=== PATIENT | female | born 1960 | race Asian ===

== ENCOUNTER 2016-04-26 12:43 | Outpatient (CLI) | payer OTHER ==
[2016-04-26 16:58] LABS: PLATELET COUNT 302 K/uL (152-353)
[2016-04-26 17:22] LABS: POTASSIUM 4.2 mmol/L (3.6-5.2); SODIUM 137 mmol/L (136-145)
== END 2016-04-26 13:43 | disposition home or self-care (01) ==
LOC: LABW 12:43
PROVIDERS: Internal Medicine
DX: E05.80 Other thyrotoxicosis without thyrotoxic crisis or storm (principal); E78.00 Pure hypercholesterolemia, unspecified
CPT/HCPCS: 36415; 80053; 80061; 82306; 83036; 84443; 85027

== ENCOUNTER 2016-05-31 07:43 | Day surgery (SDC) | payer OTHER | END 2016-05-31 09:30 | disposition home or self-care (01) | LOC: OR 07:43 | PROC: 0DB68ZZ Excision of Stomach, Via Natural or Artificial Opening Endoscopic (ICD-10-PCS; principal; 2016-05-31) | DX: K29.50 Unspecified chronic gastritis without bleeding (principal); K44.9 Diaphragmatic hernia without obstruction or gangrene; K21.9 Gastro-esophageal reflux disease without esophagitis; R10.12 Left upper quadrant pain; R10.13 Epigastric pain | CPT/HCPCS: J2704 ==

== ENCOUNTER 2016-06-02 08:50 | Outpatient (CLI) | payer OTHER | END 2016-06-02 21:37 | disposition home or self-care (01) | LOC: MAMMO 08:50 | DX: Z12.31 Encounter for screening mammogram for malignant neoplasm of breast (principal) | CPT/HCPCS: G0202-TC ==

== ENCOUNTER 2016-06-07 10:14 | Outpatient (CLI) | payer OTHER | END 2016-06-07 19:13 | disposition home or self-care (01) | LOC: MAMMO 10:14 → US 10:30 → MAMMO 19:13 | DX: R92.8 Other abnormal and inconclusive findings on diagnostic imaging of breast (principal) | CPT/HCPCS: G0206-TC ==

== ENCOUNTER 2016-11-15 20:54 | Outpatient (CLI) | payer OTHER ==
[2016-11-15 23:32] LABS: POTASSIUM 3.4 mmol/L (3.6-5.2)
== END 2016-11-15 21:55 | disposition home or self-care (01) ==
LOC: LABW 20:54
PROVIDERS: Internal Medicine
DX: E03.8 Other specified hypothyroidism (principal); I10 Essential (primary) hypertension; E55.9 Vitamin D deficiency, unspecified; R79.89 Other specified abnormal findings of blood chemistry
CPT/HCPCS: 80053; 80061; 82652; 83036; 84443

== ENCOUNTER 2017-03-09 13:56 | Outpatient (CLI) | payer OTHER | END 2017-03-09 22:14 | disposition home or self-care (01) | LOC: RAD 13:56 | DX: M81.0 Age-related osteoporosis without current pathological fracture (principal) ==

== ENCOUNTER 2017-05-04 19:50 | Outpatient (CLI) | payer OTHER | END 2017-05-04 22:01 | disposition home or self-care (01) | LOC: LABW 19:50 | DX: E03.8 Other specified hypothyroidism (principal); E34.8 Other specified endocrine disorders; Z79.890 Hormone replacement therapy | CPT/HCPCS: 36415; 82670; 83001; 84402; 84403; 84436 ==

== ENCOUNTER 2017-06-07 13:25 | Outpatient (CLI) | payer OTHER | END 2017-06-07 19:36 | disposition home or self-care (01) | LOC: MAMMO 13:25 | DX: Z12.31 Encounter for screening mammogram for malignant neoplasm of breast (principal) ==

== ENCOUNTER 2017-11-14 10:15 | Outpatient (CLI) | payer OTHER ==
[2017-11-14 10:34] LABS: PLATELET COUNT 284 K/uL (152-353)
[2017-11-14 10:59] LABS: POTASSIUM 3.9 mmol/L (3.6-5.2)
== END 2017-11-14 19:31 | disposition home or self-care (01) ==
LOC: LABW 10:15
PROVIDERS: Internal Medicine
DX: E78.2 Mixed hyperlipidemia (principal); E03.9 Hypothyroidism, unspecified; E55.9 Vitamin D deficiency, unspecified
CPT/HCPCS: 80053; 80061; 82306; 84443; 85027

== ENCOUNTER 2018-06-11 13:28 | Outpatient (CLI) | payer OTHER | END 2018-06-11 21:08 | disposition home or self-care (01) | LOC: MAMMO 13:28 | DX: Z12.31 Encounter for screening mammogram for malignant neoplasm of breast (principal) ==

== ENCOUNTER 2018-11-05 07:55 | Outpatient (CLI) | payer OTHER ==
[2018-11-05 08:11] LABS: PLATELET COUNT 271 K/uL (152-353)
[2018-11-05 08:33] LABS: POTASSIUM 4.1 mmol/L (3.6-5.2)
== END 2018-11-05 23:59 | disposition home or self-care (01) ==
LOC: LABW 07:55
PROVIDERS: Family Medicine
DX: E03.8 Other specified hypothyroidism (principal); R53.83 Other fatigue; E55.9 Vitamin D deficiency, unspecified; E53.8 Deficiency of other specified B group vitamins; R68.82 Decreased libido; Z79.890 Hormone replacement therapy; E78.2 Mixed hyperlipidemia
CPT/HCPCS: 36415; 80053; 80061; 82306; 82607; 82670; 83001; 84402; 84403; 84436; 84443; 84481; 85027; 86376

== ENCOUNTER 2019-04-18 13:05 | Outpatient (CLI) | payer OTHER | END 2019-04-18 21:21 | disposition home or self-care (01) | LOC: RAD 13:05 | DX: M25.511 Pain in right shoulder (principal) ==

== ENCOUNTER 2019-06-16 11:58 | Outpatient (CLI) | payer OTHER | END 2019-06-16 19:17 | disposition home or self-care (01) | LOC: MAMMO 11:58 | DX: Z12.31 Encounter for screening mammogram for malignant neoplasm of breast (principal) ==

== ENCOUNTER 2019-07-16 13:24 | Outpatient (CLI) | payer OTHER | END 2019-07-16 20:58 | disposition home or self-care (01) | LOC: RAD 13:24 | DX: J40 Bronchitis, not specified as acute or chronic (principal) ==

== ENCOUNTER 2019-09-10 08:29 | Outpatient (CLI) | payer OTHER ==
[2019-09-10 09:56] LABS: PLATELET COUNT 251 K/uL (152-353)
== END 2019-09-10 22:03 | disposition home or self-care (01) ==
LOC: LABW 08:29
PROVIDERS: Nurse Practitioner Family
DX: E03.9 Hypothyroidism, unspecified (principal); R53.83 Other fatigue; E55.9 Vitamin D deficiency, unspecified; E53.8 Deficiency of other specified B group vitamins; R68.82 Decreased libido; Z79.890 Hormone replacement therapy; E78.2 Mixed hyperlipidemia
CPT/HCPCS: 36415; 80053; 80061; 82306; 82607; 82670; 83001; 84402; 84403; 84436; 84443; 84481; 85027; 86376

== ENCOUNTER 2019-10-21 09:50 | Outpatient (CLI) | payer OTHER | END 2019-10-21 20:48 | disposition home or self-care (01) | LOC: MRI 09:50 | DX: M47.896 Other spondylosis, lumbar region (principal) ==

== ENCOUNTER 2019-10-31 08:20 | Outpatient (CLI) | payer OTHER | END 2019-10-31 20:23 | disposition home or self-care (01) | LOC: CT 08:20 | DX: R59.0 Localized enlarged lymph nodes (principal) | CPT/HCPCS: 36415; 82565; 84520; Q9963 ==

== ENCOUNTER 2020-05-20 12:42 | Outpatient (CLI) | payer OTHER ==
[~2020-05-20] VITALS: Ht 157.5 cm; Wt 106.1 kg
== END 2020-05-20 21:46 | disposition home or self-care (01) ==
LOC: DIABINF 12:42
PROVIDERS: ATTEND Internal Medicine Endocrinology, Diabetes & Metabolism
DX: E88.81 Metabolic syndrome and other insulin resistance (principal); K21.9 Gastro-esophageal reflux disease without esophagitis; E78.2 Mixed hyperlipidemia; E03.8 Other specified hypothyroidism; E55.9 Vitamin D deficiency, unspecified; G47.09 Other insomnia; M15.0 Primary generalized (osteo)arthritis; Z68.41 Body mass index [BMI] 40.0-44.9, adult; E66.8 Other obesity; Z71.3 Dietary counseling and surveillance
CPT/HCPCS: 82948; 96365; 96366; 96521; 99204; J1718; J1815

== ENCOUNTER 2020-05-21 12:43 | Outpatient (CLI) | payer OTHER ==
[~2020-05-21] VITALS: Ht 157.5 cm; Wt 106.1 kg
== END 2020-05-21 21:40 | disposition home or self-care (01) ==
LOC: DIABINF 12:43
PROVIDERS: ATTEND Internal Medicine Endocrinology, Diabetes & Metabolism
DX: E88.81 Metabolic syndrome and other insulin resistance (principal); K21.9 Gastro-esophageal reflux disease without esophagitis; E78.2 Mixed hyperlipidemia; E03.8 Other specified hypothyroidism; E55.9 Vitamin D deficiency, unspecified; G47.09 Other insomnia; M15.0 Primary generalized (osteo)arthritis; Z68.41 Body mass index [BMI] 40.0-44.9, adult; E66.8 Other obesity; Z71.3 Dietary counseling and surveillance
CPT/HCPCS: 82948; 96365; 96366; 96521; 99214; J1718; J1815

== ENCOUNTER 2020-05-26 13:02 | Outpatient (CLI) | payer OTHER ==
[~2020-05-26] VITALS: Ht 157.5 cm; Wt 106.1 kg
== END 2020-05-26 22:15 | disposition home or self-care (01) ==
LOC: DIABINF 13:02
PROVIDERS: ATTEND Internal Medicine Endocrinology, Diabetes & Metabolism
DX: E88.81 Metabolic syndrome and other insulin resistance (principal); K21.9 Gastro-esophageal reflux disease without esophagitis; E78.2 Mixed hyperlipidemia; E03.8 Other specified hypothyroidism; E55.9 Vitamin D deficiency, unspecified; G47.09 Other insomnia; M15.0 Primary generalized (osteo)arthritis; Z68.41 Body mass index [BMI] 40.0-44.9, adult; Z71.3 Dietary counseling and surveillance
CPT/HCPCS: 82948; 96365; 96366; 96521; 99214; J1718; J1815

== ENCOUNTER 2020-05-27 12:47 | Outpatient (CLI) | payer OTHER ==
[~2020-05-27] VITALS: Ht 157.5 cm; Wt 106.1 kg
== END 2020-05-27 22:13 | disposition home or self-care (01) ==
LOC: DIABINF 12:47
PROVIDERS: ATTEND Internal Medicine Endocrinology, Diabetes & Metabolism
DX: E88.81 Metabolic syndrome and other insulin resistance (principal); K21.9 Gastro-esophageal reflux disease without esophagitis; E78.2 Mixed hyperlipidemia; E03.8 Other specified hypothyroidism; E55.9 Vitamin D deficiency, unspecified; M15.0 Primary generalized (osteo)arthritis; Z68.41 Body mass index [BMI] 40.0-44.9, adult; Z71.3 Dietary counseling and surveillance
CPT/HCPCS: 82948; 96365; 96366; 96521; 99214; J1718; J1815

== ENCOUNTER 2020-06-02 12:38 | Outpatient (CLI) | payer OTHER ==
[~2020-06-02] VITALS: Ht 157.5 cm; Wt 106.1 kg
== END 2020-06-02 22:04 | disposition home or self-care (01) ==
LOC: DIABINF 12:38
PROVIDERS: ATTEND Internal Medicine Endocrinology, Diabetes & Metabolism
DX: E88.81 Metabolic syndrome and other insulin resistance (principal); R73.03 Prediabetes; E78.2 Mixed hyperlipidemia; K21.9 Gastro-esophageal reflux disease without esophagitis; E03.8 Other specified hypothyroidism; E55.9 Vitamin D deficiency, unspecified; M19.09 Primary osteoarthritis, other specified site; E66.01 Morbid (severe) obesity due to excess calories; Z68.41 Body mass index [BMI] 40.0-44.9, adult
CPT/HCPCS: 82948; 96365; 96366; 96521; 99214; J1815

== ENCOUNTER 2020-06-09 13:13 | Outpatient (CLI) | payer OTHER ==
[~2020-06-09] VITALS: Ht 157.5 cm; Wt 106.1 kg
== END 2020-06-09 22:45 | disposition home or self-care (01) ==
LOC: DIABINF 13:13
PROVIDERS: ATTEND Internal Medicine Endocrinology, Diabetes & Metabolism
DX: E88.81 Metabolic syndrome and other insulin resistance (principal); R73.03 Prediabetes; E78.2 Mixed hyperlipidemia; K21.9 Gastro-esophageal reflux disease without esophagitis; E03.8 Other specified hypothyroidism; E55.9 Vitamin D deficiency, unspecified; M19.09 Primary osteoarthritis, other specified site; E66.01 Morbid (severe) obesity due to excess calories; Z68.41 Body mass index [BMI] 40.0-44.9, adult
CPT/HCPCS: 82948; 96365; 96366; 96521; 99213; J1718; J1815

== ENCOUNTER 2020-06-16 13:17 | Outpatient (CLI) | payer OTHER ==
[~2020-06-16] VITALS: Ht 157.5 cm; Wt 106.1 kg
== END 2020-06-16 20:30 | disposition home or self-care (01) ==
LOC: DIABINF 13:17
PROVIDERS: ATTEND Internal Medicine Endocrinology, Diabetes & Metabolism
DX: E88.81 Metabolic syndrome and other insulin resistance (principal); R73.03 Prediabetes; E78.2 Mixed hyperlipidemia; K21.9 Gastro-esophageal reflux disease without esophagitis; E03.8 Other specified hypothyroidism; E55.9 Vitamin D deficiency, unspecified; M15.0 Primary generalized (osteo)arthritis; E66.01 Morbid (severe) obesity due to excess calories; Z68.41 Body mass index [BMI] 40.0-44.9, adult
CPT/HCPCS: 82948; 96365; 96366; 96521; 99213; J1718; J1815

== ENCOUNTER 2020-06-23 12:30 | Outpatient (CLI) | payer OTHER ==
[~2020-06-23] VITALS: Ht 157.5 cm; Wt 106.1 kg
== END 2020-06-23 21:33 | disposition home or self-care (01) ==
LOC: DIABINF 12:30
PROVIDERS: ATTEND Internal Medicine Endocrinology, Diabetes & Metabolism
DX: E88.81 Metabolic syndrome and other insulin resistance (principal); R73.03 Prediabetes; E78.2 Mixed hyperlipidemia; K21.9 Gastro-esophageal reflux disease without esophagitis; E03.8 Other specified hypothyroidism; E55.9 Vitamin D deficiency, unspecified; M15.0 Primary generalized (osteo)arthritis; E66.01 Morbid (severe) obesity due to excess calories; Z68.41 Body mass index [BMI] 40.0-44.9, adult
CPT/HCPCS: 82948; 96365; 96366; 96521; 99214; J1718; J1815

== ENCOUNTER 2020-06-30 12:36 | Outpatient (CLI) | payer OTHER ==
[~2020-06-30] VITALS: Ht 157.5 cm; Wt 106.1 kg
== END 2020-06-30 21:27 | disposition home or self-care (01) ==
LOC: DIABINF 12:36
PROVIDERS: ATTEND Internal Medicine Endocrinology, Diabetes & Metabolism
DX: E88.81 Metabolic syndrome and other insulin resistance (principal); R73.03 Prediabetes; E78.2 Mixed hyperlipidemia; K21.9 Gastro-esophageal reflux disease without esophagitis; E03.8 Other specified hypothyroidism; E55.9 Vitamin D deficiency, unspecified; M15.0 Primary generalized (osteo)arthritis; E66.01 Morbid (severe) obesity due to excess calories; Z68.41 Body mass index [BMI] 40.0-44.9, adult
CPT/HCPCS: 82948; 96365; 96366; 96521; 99214; J1718; J1815

== ENCOUNTER 2020-07-08 13:09 | Outpatient (CLI) | payer OTHER ==
[~2020-07-08] VITALS: Ht 157.5 cm; Wt 106.1 kg
== END 2020-07-08 20:37 | disposition home or self-care (01) ==
LOC: DIABINF 13:09
PROVIDERS: ATTEND Internal Medicine Endocrinology, Diabetes & Metabolism
DX: E88.81 Metabolic syndrome and other insulin resistance (principal); R73.03 Prediabetes; E78.2 Mixed hyperlipidemia; K21.9 Gastro-esophageal reflux disease without esophagitis; E03.8 Other specified hypothyroidism; E55.9 Vitamin D deficiency, unspecified; M15.0 Primary generalized (osteo)arthritis; E66.01 Morbid (severe) obesity due to excess calories; Z68.41 Body mass index [BMI] 40.0-44.9, adult
CPT/HCPCS: 82948; 96365; 96366; 96521; 99214; J1718; J1815

== ENCOUNTER 2020-07-12 13:29 | Outpatient (CLI) | payer OTHER | END 2020-07-12 19:40 | disposition home or self-care (01) | LOC: MAMMO 13:29 | PROVIDERS: ATTEND Obstetrics & Gynecology | DX: Z12.31 Encounter for screening mammogram for malignant neoplasm of breast (principal) ==

== ENCOUNTER 2020-07-14 12:30 | Outpatient (CLI) | payer OTHER ==
[~2020-07-14] VITALS: Ht 157.5 cm; Wt 106.1 kg
== END 2020-07-14 19:22 | disposition home or self-care (01) ==
LOC: DIABINF 12:30
PROVIDERS: ATTEND Internal Medicine Endocrinology, Diabetes & Metabolism
DX: E88.81 Metabolic syndrome and other insulin resistance (principal); E78.2 Mixed hyperlipidemia; K21.9 Gastro-esophageal reflux disease without esophagitis; E03.8 Other specified hypothyroidism; E55.9 Vitamin D deficiency, unspecified; E66.8 Other obesity; Z68.41 Body mass index [BMI] 40.0-44.9, adult
CPT/HCPCS: 82948; 96365; 96366; 96521; J1815; J1817

== ENCOUNTER 2020-07-21 12:53 | Outpatient (CLI) | payer OTHER ==
[~2020-07-21] VITALS: Ht 157.5 cm; Wt 106.1 kg
== END 2020-07-21 21:13 | disposition home or self-care (01) ==
LOC: DIABINF 12:53
PROVIDERS: ATTEND Nurse Practitioner
DX: E88.81 Metabolic syndrome and other insulin resistance (principal); R73.03 Prediabetes; E78.2 Mixed hyperlipidemia; K21.9 Gastro-esophageal reflux disease without esophagitis; E03.8 Other specified hypothyroidism; E55.9 Vitamin D deficiency, unspecified; M15.0 Primary generalized (osteo)arthritis; E66.01 Morbid (severe) obesity due to excess calories; Z68.41 Body mass index [BMI] 40.0-44.9, adult
CPT/HCPCS: 82948; 96365; 96366; 96521; J1815; J1817

== ENCOUNTER 2020-07-28 12:29 | Outpatient (CLI) | payer OTHER ==
[~2020-07-28] VITALS: Ht 157.5 cm; Wt 106.1 kg
== END 2020-07-28 21:34 | disposition home or self-care (01) ==
LOC: DIABINF 12:29
PROVIDERS: ATTEND Nurse Practitioner
DX: E88.81 Metabolic syndrome and other insulin resistance (principal); R73.03 Prediabetes; E78.2 Mixed hyperlipidemia; K21.9 Gastro-esophageal reflux disease without esophagitis; E03.8 Other specified hypothyroidism; E55.9 Vitamin D deficiency, unspecified; M15.0 Primary generalized (osteo)arthritis; E66.01 Morbid (severe) obesity due to excess calories; Z68.41 Body mass index [BMI] 40.0-44.9, adult
CPT/HCPCS: 82948; 96365; 96366; 96521; J1815; J1817

== ENCOUNTER 2020-08-03 12:17 | Outpatient (CLI) | payer OTHER ==
[~2020-08-03] VITALS: Ht 157.5 cm; Wt 110.2 kg
== END 2020-08-03 22:07 | disposition home or self-care (01) ==
LOC: DIABINF 12:17
PROVIDERS: ATTEND Nurse Practitioner
DX: E88.81 Metabolic syndrome and other insulin resistance (principal); R73.03 Prediabetes; E78.2 Mixed hyperlipidemia; K21.9 Gastro-esophageal reflux disease without esophagitis; E03.8 Other specified hypothyroidism; E55.9 Vitamin D deficiency, unspecified; M15.0 Primary generalized (osteo)arthritis; E66.01 Morbid (severe) obesity due to excess calories; Z68.41 Body mass index [BMI] 40.0-44.9, adult
CPT/HCPCS: 82948; 96365; 96366; 96521; J1815; J1817

== ENCOUNTER 2020-08-11 13:09 | Outpatient (CLI) | payer OTHER ==
[~2020-08-11] VITALS: Ht 157.5 cm; Wt 106.1 kg
== END 2020-08-11 21:06 | disposition home or self-care (01) ==
LOC: DIABINF 13:09
PROVIDERS: ATTEND Internal Medicine Endocrinology, Diabetes & Metabolism
DX: E88.81 Metabolic syndrome and other insulin resistance (principal); R73.03 Prediabetes; E78.2 Mixed hyperlipidemia; K21.9 Gastro-esophageal reflux disease without esophagitis; E03.8 Other specified hypothyroidism; E55.9 Vitamin D deficiency, unspecified; M15.0 Primary generalized (osteo)arthritis; E66.01 Morbid (severe) obesity due to excess calories; Z68.41 Body mass index [BMI] 40.0-44.9, adult
CPT/HCPCS: 82948; 96365; 96366; 96521; J1815; J1817

== ENCOUNTER 2020-08-17 08:37 | Outpatient (CLI) | payer OTHER ==
[2020-08-17 08:51] LABS: PLATELET COUNT 261 K/uL (152-353)
== END 2020-08-17 22:40 | disposition home or self-care (01) ==
LOC: LABW 08:37
PROVIDERS: ATTEND Nurse Practitioner
DX: R73.09 Other abnormal glucose (principal); E78.5 Hyperlipidemia, unspecified
CPT/HCPCS: 36415; 80053; 80061; 83036; 85027

== ENCOUNTER 2020-08-18 12:55 | Outpatient (CLI) | payer OTHER ==
[~2020-08-18] VITALS: Ht 157.5 cm; Wt 106.1 kg
== END 2020-08-18 23:04 | disposition home or self-care (01) ==
LOC: DIABINF 12:55
PROVIDERS: ATTEND Internal Medicine Endocrinology, Diabetes & Metabolism
DX: E88.81 Metabolic syndrome and other insulin resistance (principal); R73.03 Prediabetes; E78.2 Mixed hyperlipidemia; K21.9 Gastro-esophageal reflux disease without esophagitis; E03.8 Other specified hypothyroidism; E55.9 Vitamin D deficiency, unspecified; M15.0 Primary generalized (osteo)arthritis; E66.01 Morbid (severe) obesity due to excess calories; Z68.41 Body mass index [BMI] 40.0-44.9, adult
CPT/HCPCS: 82948; 96365; 96366; 96521; J1815; J1817

== ENCOUNTER 2020-08-23 14:37 | Outpatient (CLI) | payer OTHER | END 2020-08-23 20:05 | disposition home or self-care (01) | LOC: MRI 14:37 | PROVIDERS: ATTEND Family Medicine | DX: M25.462 Effusion, left knee (principal) ==

== ENCOUNTER 2020-09-01 12:59 | Outpatient (CLI) | payer OTHER ==
[~2020-09-01] VITALS: Ht 157.5 cm; Wt 102.1 kg
== END 2020-09-01 16:00 | disposition home or self-care (01) ==
LOC: DIABINF 12:59
PROVIDERS: ATTEND Internal Medicine Endocrinology, Diabetes & Metabolism
DX: R73.03 Prediabetes (principal); I10 Essential (primary) hypertension; E78.2 Mixed hyperlipidemia; E03.8 Other specified hypothyroidism; K21.9 Gastro-esophageal reflux disease without esophagitis; E88.81 Metabolic syndrome and other insulin resistance
CPT/HCPCS: 82948; 96365; 96366; 96521; J1815; J1817

== ENCOUNTER 2020-09-15 12:55 | Outpatient (CLI) | payer OTHER ==
[~2020-09-15] VITALS: Ht 157.5 cm; Wt 102.1 kg
== END 2020-09-15 22:18 | disposition home or self-care (01) ==
LOC: DIABINF 12:55
PROVIDERS: ATTEND Nurse Practitioner
DX: E88.81 Metabolic syndrome and other insulin resistance (principal); I10 Essential (primary) hypertension; E78.2 Mixed hyperlipidemia; E03.8 Other specified hypothyroidism; K21.9 Gastro-esophageal reflux disease without esophagitis
CPT/HCPCS: 82948; 96365; 96366; 96521; J1815; J1817

== ENCOUNTER 2020-09-22 15:08 | Outpatient (CLI) | payer OTHER | END 2020-09-22 21:46 | disposition home or self-care (01) | LOC: RAD 15:08 | PROVIDERS: ATTEND Nurse Practitioner Primary Care | DX: M79.661 Pain in right lower leg (principal) ==

== ENCOUNTER 2020-09-29 12:57 | Outpatient (CLI) | payer OTHER ==
[~2020-09-29] VITALS: Ht 158.8 cm; Wt 102.1 kg
== END 2020-09-29 20:59 | disposition home or self-care (01) ==
LOC: DIABINF 12:57
PROVIDERS: ATTEND Nurse Practitioner
DX: E88.81 Metabolic syndrome and other insulin resistance (principal); I10 Essential (primary) hypertension; E78.2 Mixed hyperlipidemia; K21.9 Gastro-esophageal reflux disease without esophagitis
CPT/HCPCS: 82948; 96365; 96366; 96521; J1815; J1817

== ENCOUNTER 2020-10-04 12:48 | Outpatient (CLI) | payer OTHER | END 2020-10-04 21:05 | disposition home or self-care (01) | LOC: MRI 12:48 | PROVIDERS: ATTEND Family Medicine | DX: M25.561 Pain in right knee (principal) ==

== ENCOUNTER 2020-10-06 17:33 | Outpatient (CLI) | payer OTHER ==
[2020-10-06 17:50] LABS: PLATELET COUNT 321 K/uL (152-353)
== END 2020-10-06 23:43 | disposition home or self-care (01) ==
LOC: LABW 17:33
PROVIDERS: ATTEND Family Medicine
DX: Z01.818 Encounter for other preprocedural examination (principal)
CPT/HCPCS: 36415; 80053; 85027

== ENCOUNTER 2020-10-14 13:11 | Outpatient (CLI) | payer OTHER ==
[~2020-10-14] VITALS: Ht 157.5 cm; Wt 102.1 kg
== END 2020-10-14 20:35 | disposition home or self-care (01) ==
LOC: DIABINF 13:11
PROVIDERS: ATTEND Nurse Practitioner
DX: R73.03 Prediabetes (principal); I10 Essential (primary) hypertension; E78.2 Mixed hyperlipidemia; E03.8 Other specified hypothyroidism; K21.9 Gastro-esophageal reflux disease without esophagitis
CPT/HCPCS: 82948; 96365; 96366; 96521; J1815; J1817

== ENCOUNTER 2020-10-27 12:56 | Outpatient (CLI) | payer OTHER ==
[~2020-10-27] VITALS: Ht 157.5 cm; Wt 102.1 kg
== END 2020-10-27 21:14 | disposition home or self-care (01) ==
LOC: DIABINF 12:56
PROVIDERS: ATTEND Nurse Practitioner
DX: R73.03 Prediabetes (principal); I10 Essential (primary) hypertension; E78.2 Mixed hyperlipidemia; E03.8 Other specified hypothyroidism; K21.9 Gastro-esophageal reflux disease without esophagitis
CPT/HCPCS: J1815

== ENCOUNTER 2021-07-14 14:01 | Outpatient (CLI) | payer OTHER | END 2021-07-14 19:36 | disposition home or self-care (01) | LOC: MAMMO 14:01 | PROVIDERS: ATTEND Family Medicine | DX: Z12.31 Encounter for screening mammogram for malignant neoplasm of breast (principal) ==

== ENCOUNTER 2021-08-22 14:04 | Outpatient (CLI) | payer OTHER | END 2021-08-22 19:03 | disposition home or self-care (01) | LOC: RAD 14:04 | PROVIDERS: ATTEND Specialist | DX: K59.00 Constipation, unspecified (principal) ==

== ENCOUNTER 2021-11-07 07:59 | Outpatient (CLI) | payer OTHER ==
[2021-11-07 08:21] LABS: PLATELET COUNT 255 K/uL (152-353)
[2021-11-07 08:53] LABS: POTASSIUM 3.6 mmol/L (3.6-5.2)
== END 2021-11-07 19:49 | disposition home or self-care (01) ==
LOC: LABW 07:59
PROVIDERS: ATTEND Family Medicine
DX: E53.8 Deficiency of other specified B group vitamins (principal); Z79.890 Hormone replacement therapy; E55.9 Vitamin D deficiency, unspecified; E78.2 Mixed hyperlipidemia
CPT/HCPCS: 36415; 80053; 80061; 82306; 82607; 82670; 83001; 84402; 84403; 84436; 84443; 84481; 85027

== ENCOUNTER 2021-12-08 07:42 | Outpatient (CLI) | payer OTHER | END 2021-12-08 19:21 | disposition home or self-care (01) | LOC: CT 07:42 | PROVIDERS: ATTEND Surgery | DX: K43.2 Incisional hernia without obstruction or gangrene (principal); M25.561 Pain in right knee; M25.562 Pain in left knee; M25.551 Pain in right hip | CPT/HCPCS: Q9963 ==

== ENCOUNTER 2021-12-28 08:40 | Outpatient (CLI) | payer OTHER ==
[2021-12-28 09:08] LABS: PLATELET COUNT 314 K/uL (152-353)
[2021-12-28 09:25] LABS: POTASSIUM 4.1 mmol/L (3.6-5.2)
== END 2021-12-28 19:28 | disposition home or self-care (01) ==
LOC: LABW 08:40
PROVIDERS: ATTEND Family Medicine
DX: Z01.818 Encounter for other preprocedural examination (principal)
CPT/HCPCS: 36415; 80053; 85027; 93005

== ENCOUNTER 2022-01-18 11:44 | Outpatient (CLI) | payer OTHER ==
[2022-01-18 12:05] LABS: PLATELET COUNT 488 K/uL (152-353)
== END 2022-01-18 19:13 | disposition home or self-care (01) ==
LOC: LABW 11:44
PROVIDERS: ATTEND Family Medicine
DX: Z01.818 Encounter for other preprocedural examination (principal); K43.2 Incisional hernia without obstruction or gangrene
CPT/HCPCS: 36415; 80053; 85027

== ENCOUNTER 2022-05-26 12:43 | Outpatient (CLI) | payer OTHER | END 2022-05-26 19:18 | disposition home or self-care (01) | LOC: MRI 12:43 | PROVIDERS: ATTEND Physician Assistant | DX: M25.562 Pain in left knee (principal) ==

== ENCOUNTER 2022-07-18 15:22 | Outpatient (CLI) | payer OTHER | END 2022-07-18 19:05 | disposition home or self-care (01) | LOC: MAMMO 15:22 | PROVIDERS: ATTEND Family Medicine | DX: Z12.31 Encounter for screening mammogram for malignant neoplasm of breast (principal) ==

== ENCOUNTER 2022-08-16 15:01 | Outpatient (CLI) | payer OTHER | END 2022-08-16 19:23 | disposition home or self-care (01) | LOC: RAD 15:01 | PROVIDERS: ATTEND Physician Assistant | DX: M25.552 Pain in left hip (principal) ==

== ENCOUNTER 2022-11-20 14:40 | Outpatient (CLI) | payer OTHER | END 2022-11-20 19:10 | disposition home or self-care (01) | LOC: MRI 14:40 | PROVIDERS: ATTEND Orthopaedic Surgery | DX: M25.562 Pain in left knee (principal) ==